=== PATIENT | male | born 1960 | race Caucasian/White ===

== ENCOUNTER 2016-09-20 15:09 | Day surgery (SDC) | payer OTHER ==
--- NOTE | ~2016-09-20 | EGD ---
EGD REPORT [facility] 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 Estimated blood loss: None. Procedure: Pre-Anesthesia Assessment: - ASA Grade Assessment: II - A patient with mild systemic disease. After obtaining informed consent, the endoscope was passed under direct vision. Throughout the procedure, the patient's blood pressure, pulse, and oxygen saturations were monitored continuously. The Endoscope was introduced through the mouth, and advanced to the second part of duodenum. Findings: Endosonographic Finding : A mass was identified in the pancreatic head and in the genu of the pancreas. The mass was hypoechoic. The mass measured 40 mm by 31 mm in maximal cross-sectional diameter. The endosonographic borders were well-defined. There was sonographic evidence suggesting invasion into the second portion of the duodenum (manifested by invasion). An intact interface was seen between the mass and the portal vein, superior mesenteric vein, splenic vein, celiac trunk and superior mesenteric artery suggesting a lack of invasion. Fine needle aspiration was performed. Color Doppler imaging was utilized prior to needle puncture to confirm a lack of significant vascular structures within the needle path. Four passes were made with the 22 gauge needle using a transgastric approach. No stylet was used. A preliminary cytologic examination was not performed. Final cytology results are pending. There was dilation in the common bile duct which measured up to 10 mm. One abnormal lymph node was visualized in the peripancreatic region. This was ten mm from the primary tumor. It measured 7 mm. The node was round and hypoechoic. Endosonographic images of the stomach were unremarkable. There was no sign of significant endosonographic abnormality in the esophagus. EGD REPORT [address] [address] NAME: MONIQUE CAPPS : [birth year] STATUS : REG [facility] [place] PAT#: [id number] AGE: 55 ADM/REG DATE : 09/20/16 MR#: [id number] REPORT SERV DATE: 09/20/16 DICTATED BY: YEMI VILLARREAL DATE: 09/20/16 REPORT STATUS : Draft TRANSCRIBED BY: [facility] DATE: 09/20/16 Impression: - A mass was identified in the pancreatic head and in the genu of the pancreas. - There was dilation in the common bile duct which measured up to 10 mm. - One abnormal lymph node was visualized in the peripancreatic region. - Endosonographic images of the stomach were unremarkable. - There was no sign of significant pathology in the esophagus. Recommendation: - Await path results. - Refer to a surgeon. Procedure Code(s): --- Professional --- 74358, Esophagogastroduodenoscopy, flexible, transoral; with transendoscopic ultrasound-guided intramural or transmural fine needle aspiration/biopsy(s) (includes endoscopic ultrasound examination of the esophagus, stomach, and either the duodenum or a surgically altered stomach where the jejunum is examined distal to the anastomosis) Diagnosis Code(s): --- Professional --- K86.8, Other specified diseases of pancreas K83.8, Other specified diseases of biliary tract I89.9, Noninfective disorder of lymphatic vessels and lymph nodes, unspecified CPT copyright 2013 [employer]. All rights reserved. The codes documented in this report are preliminary and upon cyanide case hardener review may be revised to meet current compliance requirements. YEMI VILLARREAL, 09/20/2016 4:52 PM Number of Addenda: 0 Note Initiated On: 09/20/2016 4:21 PM Scope Withdrawal Time 0 hours 0 minutes 0 seconds [id number] [address]
[~2016-09-20 15:09] MED LIST: ASAB PO; PRILO PO
== END 2016-09-20 23:59 | disposition home or self-care (01) ==
LOC: DMU 15:09
PROVIDERS: Internal Medicine Gastroenterology
PROC: 0DB58ZX Excision of Esophagus, Via Natural or Artificial Opening Endoscopic, Diagnostic (ICD-10-PCS; principal; 2016-09-20 17:00)
DX: K86.9 Disease of pancreas, unspecified (principal); K83.8 Other specified diseases of biliary tract; I89.9 Noninfective disorder of lymphatic vessels and lymph nodes, unspecified; D64.9 Anemia, unspecified; K21.9 Gastro-esophageal reflux disease without esophagitis; Z98.890 Other specified postprocedural states
CPT/HCPCS: 88173; 88305; 88341; 88342; 88360; C1725